=== PATIENT | female | born 1985 | race Caucasian/White ===

== ENCOUNTER 2017-09-25 11:32 | Emergency (ER) | payer OTHER ==
[~2017-09-25] VITALS: Ht 170.2 cm; Wt 90.7 kg
[~2017-09-25 11:32] MED LIST: CIPRO250 M1 PO; PERCOCET 5-3251 EACH PO; TAMSULOSIN HCL0.4 MG PO
[2017-09-25 12:16] LABS: ABSOLUTE BASOPHILS 0.1 thou/uL (0.0-0.2); ABSOLUTE EOSINOPHILS 0.3 thou/uL (0.0-0.7); ABSOLUTE LYMPHOCYTES 2.7 thou/uL (0.8-5.3); ABSOLUTE MONOCYTES 0.5 thou/uL (0.0-1.2); ABSOLUTE NEUTROPHILS 5.3 thou/uL (1.6-8.1); BASOPHILS 0.7 %; EOSINOPHILS 3.6 %; HEMATOCRIT 39.7 % (37.0-47.0); HEMOGLOBIN 13.4 gm/dL (12.0-15.0); LYMPHOCYTES 30.5 %; MCH 29.9 pg (26.0-34.0); MCHC 33.7 g/dL (28.0-37.0); MCV 88.6 fL (80.0-100.0); MONOCYTES 5.3 %; MPV 7.1 fl. (7.2-11.1); NUCLEATED RBCS 0 /100WBC; PLATELET COUNT* 289 thou/uL (150-400); POLYS 59.9 %; RBC 4.48 mil/uL (4.20-5.00); RDW-CV 13.9 % (10.5-14.5); WBC 8.8 thou/uL (4.0-11.0)
[2017-09-25 12:26] LABS: ANION GAP 7 mmol/L (7-16); BUN 11 mg/dL (7-18); CALCIUM 8.6 mg/dL (8.5-10.1); CHLORIDE 105 mmol/L (98-107); CO2 28 mmol/L (21-32); CREATININE 0.8 mg/dL (0.6-1.3); GLUCOSE 93 mg/dL (70-99); POTASSIUM 4.1 mmol/L (3.5-5.1); SODIUM 140 mmol/L (136-145)
[2017-09-25 12:37] LABS: ALBUMIN 3.9 g/dL (3.4-5.0); ALKALINE PHOSPHATASE 97 U/L (46-116); LIPASE 102 U/L (73-393); NT-PRO BRAIN NAT PEPTIDE 22 pg/mL (<300); SGOT 14 U/L (15-37); SGPT 25 U/L (30-65); TOTAL BILIRUBIN 0.3 mg/dL (<0.1-1.0); TOTAL PROTEIN 7.5 g/dL (6.4-8.2); TROPONIN-I LEVEL <0.06 ng/mL (<0.06)
[2017-09-25] MEDS ORDERED: IBUPROFEN 800800 MG PO (12:42)
[2017-09-25] MEDS ORDERED: ULTRAM 50MG TAB50 MG PO (12:44)
[2017-09-25 12:51] VITALS: BP 111/75
--- NOTE | 2017-09-25 16:37 | EKG ---
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1985 Requested By: Floyd Taylor Order Number: [id number] MD: Ignacio Carmona Measurements Intervals [place] Rate: 75 P: 43 VT: 168 QRS: 16 QRSD: 89 T: 33 QT: 381 QTc: 426 Interpretive Statements Sinus arrhythmia Cannot rule out anteroseptal infarct, or old Low voltage, precordial leads No previous ECG available for comparison Electronically Signed On 09-25-2017 16:37:19 CREATIVE COORDINATOR by Ignacio Carmona [email or web address] <ELECTRONICALLY SIGNED> By: Ignacio Camrona MD, [facility] 09/25/17 [id number] [id number] Ignacio Carmona MD, FACC /EPI
== END 2017-09-25 12:52 | disposition home or self-care (01) ==
LOC: M.ERS 11:32
PROVIDERS: Emergency Medicine
DX: R07.89 Other chest pain (principal); Z88.2 Allergy status to sulfonamides; Z88.0 Allergy status to penicillin; Z98.890 Other specified postprocedural states

== ENCOUNTER 2018-02-07 22:57 | Emergency (ER) | payer OTHER ==
[~2018-02-07] VITALS: Ht 170.2 cm; Wt 90.7 kg
[~2018-02-07 22:57] MED LIST changes: +IBUPROFEN 800800 MG PO; +ULTRAM 50MG TAB50 MG PO
[2018-02-07] MEDS ORDERED: XANAX 0.5 MG0.5 MG PO (23:07)
[2018-02-07 23:27] LABS: ABSOLUTE BASOPHILS 0.1 thou/uL (0.0-0.2); ABSOLUTE EOSINOPHILS 0.3 thou/uL (0.0-0.7); ABSOLUTE LYMPHOCYTES 1.6 thou/uL (0.8-5.3); ABSOLUTE MONOCYTES 0.5 thou/uL (0.0-1.2); ABSOLUTE NEUTROPHILS 5.3 thou/uL (1.6-8.1); BASOPHILS 0.7 %; EOSINOPHILS 4.3 %; HEMATOCRIT 41.6 % (37.0-47.0); HEMOGLOBIN 14.2 gm/dL (12.0-15.0); LYMPHOCYTES 20.6 %; MCH 29.3 pg (26.0-34.0); MCV 86.1 fL (80.0-100.0); MONOCYTES 6.4 %; NUCLEATED RBCS 0 /100WBC; PLATELET COUNT* 257 thou/uL (150-400); RBC 4.84 mil/uL (4.20-5.00); WBC 7.7 thou/uL (4.0-11.0)
[2018-02-07 23:34] LABS: CALCIUM 8.2 mg/dL (8.5-10.1); CREATININE 1.1 mg/dL (0.6-1.3); POTASSIUM 3.7 mmol/L (3.5-5.1)
[2018-02-07 23:39] LABS: ALBUMIN 3.6 g/dL (3.4-5.0); TOTAL BILIRUBIN 0.4 mg/dL (<0.1-1.0); TOTAL PROTEIN 7.4 g/dL (6.4-8.2)
[2018-02-08 00:09] LABS: URINE BILIRUBIN NEGATIVE (Negative); URINE BLOOD NEGATIVE (Negative); URINE CLARITY CLEAR; URINE COLOR YELLOW; URINE GLUCOSE-RANDOM NEGATIVE (Negative); URINE KETONES TRACE (Negative); URINE LEUKOCYTES-REFLEX NEGATIVE (Negative); URINE NITRITE-REFLEX NEGATIVE (Negative); URINE PROTEIN NEGATIVE (Negative); URINE SPECIFIC GRAVITY >= 1.030 (1.005-1.030); URINE UROBILINOGEN 0.2 E.U./dl (0.2-1.0)
[2018-02-08] MEDS ORDERED: NORCO 5-325 TA1 EACH PO (00:21)
[2018-02-08] MEDS ORDERED: ZOFRAN ODT4 M1 PO (00:21)
[2018-02-08 00:31] VITALS: BP 117/78
== END 2018-02-08 00:32 | disposition home or self-care (01) ==
LOC: M.ERS 22:57
PROVIDERS: Emergency Medicine Emergency Medical Services
DX: R10.32 Left lower quadrant pain (principal); Z88.0 Allergy status to penicillin; Z88.1 Allergy status to other antibiotic agents; Z87.442 Personal history of urinary calculi

== ENCOUNTER 2018-02-08 01:18 | Emergency (ER) | payer OTHER ==
[~2018-02-08] VITALS: Ht 170.2 cm; Wt 90.7 kg
[~2018-02-08 01:18] MED LIST changes: +NORCO 5-325 TA1 EACH PO; +XANAX 0.5 MG0.5 MG PO; +ZOFRAN ODT4 M1 PO
[2018-02-08 03:30] VITALS: BP 119/79
== END 2018-02-08 04:45 | disposition home or self-care (01) ==
LOC: M.ERS 01:18
DX: R10.30 Lower abdominal pain, unspecified (principal); Z87.442 Personal history of urinary calculi; Z88.1 Allergy status to other antibiotic agents; Z88.0 Allergy status to penicillin; Z88.2 Allergy status to sulfonamides

== ENCOUNTER → 2018-08-02 | Outpatient (CLI) | payer OTHER | LOC: M.RAD 15:38 | DX: M54.41 Lumbago with sciatica, right side (principal) ==

== ENCOUNTER 2018-12-01 08:51 | Emergency (ER) | payer OTHER ==
[~2018-12-01] VITALS: Ht 172.7 cm; Wt 90.7 kg
[2018-12-01] MEDS ORDERED: OMEPRAZOLE20 MG PO (09:05)
[2018-12-01] MEDS ORDERED: HYDROXYZINE HCL25 M1 PO (09:26)
[2018-12-01] MEDS ORDERED: MEDROLDOSEPACK PO (09:26)
[2018-12-01 09:45] VITALS: BP 118/76
== END 2018-12-01 09:45 | disposition home or self-care (01) ==
LOC: M.ERS 08:51
DX: R21 Rash and other nonspecific skin eruption (principal); Z88.1 Allergy status to other antibiotic agents; Z88.0 Allergy status to penicillin; Z88.2 Allergy status to sulfonamides; Z91.030 Bee allergy status; Z88.8 Allergy status to other drugs, medicaments and biological substances; Z87.442 Personal history of urinary calculi; Z90.89 Acquired absence of other organs

== ENCOUNTER 2021-01-24 21:15 | Emergency (ER) | payer OTHER ==
[~2021-01-24] VITALS: Ht 170.2 cm; Wt 99.8 kg
[~2021-01-24 21:15] MED LIST changes: +HYDROXYZINE HCL25 M1 PO; +MEDROLDOSEPACK PO; +OMEPRAZOLE20 MG PO
[2021-01-24] MEDS ORDERED: HYDROCODONE-CH115 ML PO (22:31)
[2021-01-24] MEDS ORDERED: PREDNISONE50 MG PO (22:31)
[2021-01-24] MEDS ORDERED: PROAIR HFA8.5 GM INH (22:31)
[2021-01-24 22:47] VITALS: BP 131/86
== END 2021-01-24 22:47 | disposition home or self-care (01) ==
LOC: M.ERS 21:15
DX: R05 Cough (principal); Z20.822 Contact with and (suspected) exposure to COVID-19; Z88.1 Allergy status to other antibiotic agents; Z88.0 Allergy status to penicillin; Z88.2 Allergy status to sulfonamides; Z91.030 Bee allergy status